=== PATIENT | female | born 1950 | race Caucasian/White ===

== ENCOUNTER 2017-09-13 17:48 | Inpatient (IN) | payer MEDICARE, OTHER ==
[2017-09-13] MEDS: HYDROmorphONE 1 MG/ML SYG IV (18:27)
[2017-09-13] MEDS: ONDANSETRON 4 MG INJ IV (18:27)
[2017-09-13 20:51] LABS: ADD MAN DIFF? NO
[2017-09-13 20:54] LABS: WHITE BLOOD COUNT 13.4 10^3/ul (4.8-10.8)
[2017-09-13 20:54] LABS: BASOPHILS % 0.1 % (0.0-2.0); HEMATOCRIT 37.7 % (37.0-47.0); HEMOGLOBIN 13.4 g/dl (12.0-16.0); LYMPHOCYTES # 1.3 10^3/ul (0.8-2.9); LYMPHOCYTES % 9.6 % (15.0-51.0); MEAN CORPUSCULAR HEMOGLOBIN 32.3 pg (29.0-33.0); MEAN CORPUSCULAR HGB CONC 35.5 g/dl (32.0-37.0); MEAN CORPUSCULAR VOLUME 90.8 fl (82.0-101.0); MEAN PLATELET VOLUME 10.2 fl (7.4-10.4); MONOCYTE # 0.5 10^3/ul (0.3-0.9); NEUTROPHIL # 11.5 10^3/ul (1.6-7.5); NEUTROPHILS % 86.1 % (39.0-77.0); PLATELET COUNT 270 10^3/UL (140-415); RED BLOOD COUNT 4.15 10^6/ul (4.20-5.40); RED CELL DISTRIBUTION WIDTH 11.9 % (11.5-14.5)
[2017-09-13 21:14] LABS: INR 0.93; PROTIME 12.6 Sec (11.9-14.9)
[2017-09-13 21:15] LABS: PARTIAL THROMBOPLASTIN TIME 26.7 Sec (25.0-35.0)
[2017-09-13 21:19] LABS: ALANINE AMINOTRANSFERASE 491 IU/L (13-69); ALBUMIN 4.3 g/dl (3.3-4.9); ALBUMIN/GLOBULIN RATIO 1.53; ALKALINE PHOSPHATASE 83 IU/L (42-121); ANION GAP 11 (8-16); ASPARTATE AMINO TRANSFERASE 584 IU/L (15-46); BILIRUBIN,INDIRECT 0.6 mg/dl (0-1.1); BLOOD UREA NITROGEN 12 mg/dl (7-20); CALCIUM 8.6 mg/dl (8.4-10.2); CARBON DIOXIDE 33 mmol/L (21-31); CHLORIDE 95 mmol/L (97-110); CREATININE 0.49 mg/dl (0.44-1.00); GLUCOSE 139 mg/dl (70-220); LIPASE 64 U/L (23-300); POTASSIUM 3.4 mmol/L (3.5-5.1); SODIUM 136 mmol/L (135-144); TOTAL PROTEIN 7.1 g/dl (6.1-8.1)
[2017-09-13] MEDS ORDERED: AMPICILLIN/SULB 3 GM/NS (PMX) 100 ML IVPB (22:30)
[2017-09-13] MEDS ORDERED: ONDANSETRON 4 MG INJ IV (22:30)
[2017-09-13] MEDS ORDERED: ZOLPIDEM 5 MG TAB PO (22:30)
[2017-09-13] MEDS: morphine 4 MG/ML VIAL IV (22:38)
[2017-09-13 22:56] LABS: TROPONIN-I < 0.012 ng/ml (0.00-0.12)
[2017-09-13] MEDS: AMPICILLIN/SULB 3 GM/NS (PMX) 100 ML IVPB (23:35)
[2017-09-14] MEDS ORDERED: ALBUTEROL/IPRATROPIUM (NEB) 3 ML AMP HHN (01:00)
[2017-09-14] MEDS ORDERED: NACL 0.9% 3 ML SYG IV (01:00)
[2017-09-14] MEDS ORDERED: ZOLPIDEM 5 MG TAB PO ×2 (01:00→11:30)
[2017-09-14] MEDS ORDERED: hydrALAzine 20 MG INJ IV (01:00)
[2017-09-14] MEDS ORDERED: ONDANSETRON 4 MG INJ IV (01:00)
[2017-09-14] MEDS: D5W-0.45 NACL + KCL 10 MEQ 1,000 ML IV ×2 (01:23→11:31)
[2017-09-14 04:47] LABS: ADD MAN DIFF? NO
[2017-09-14 04:50] LABS: BASOPHILS % 0.4 % (0.0-2.0); EOSINOPHILS % 0.2 % (0.0-7.0); HEMATOCRIT 36.8 % (37.0-47.0); HEMOGLOBIN 12.9 g/dl (12.0-16.0); LYMPHOCYTES # 1.5 10^3/ul (0.8-2.9); LYMPHOCYTES % 15.5 % (15.0-51.0); MEAN CORPUSCULAR HEMOGLOBIN 31.9 pg (29.0-33.0); MEAN CORPUSCULAR HGB CONC 35.1 g/dl (32.0-37.0); MEAN CORPUSCULAR VOLUME 91.1 fl (82.0-101.0); MEAN PLATELET VOLUME 10.1 fl (7.4-10.4); MONOCYTE # 0.7 10^3/ul (0.3-0.9); MONOCYTES % 7.2 % (0.0-11.0); NEUTROPHIL # 7.3 10^3/ul (1.6-7.5); NEUTROPHILS % 76.5 % (39.0-77.0); PLATELET COUNT 249 10^3/UL (140-415); RED BLOOD COUNT 4.04 10^6/ul (4.20-5.40); RED CELL DISTRIBUTION WIDTH 11.9 % (11.5-14.5)
[2017-09-14 04:50] LABS: WHITE BLOOD COUNT 9.5 10^3/ul (4.8-10.8)
[2017-09-14 05:19] LABS: ALANINE AMINOTRANSFERASE 471 IU/L (13-69); ALBUMIN 3.8 g/dl (3.3-4.9); ALBUMIN/GLOBULIN RATIO 1.35; ALKALINE PHOSPHATASE 87 IU/L (42-121); ANION GAP 10 (8-16); ASPARTATE AMINO TRANSFERASE 340 IU/L (15-46); BILIRUBIN,INDIRECT 0.8 mg/dl (0-1.1); BILIRUBIN,TOTAL 0.8 mg/dl (0.2-1.3); BLOOD UREA NITROGEN 10 mg/dl (7-20); CALCIUM 8.7 mg/dl (8.4-10.2); CARBON DIOXIDE 29 mmol/L (21-31); CHLORIDE 99 mmol/L (97-110); CREATININE 0.46 mg/dl (0.44-1.00); GLUCOSE 140 mg/dl (70-220); MAGNESIUM 1.9 mg/dl (1.7-2.5); PHOSPHORUS 2.9 mg/dl (2.5-4.9); POTASSIUM 3.2 mmol/L (3.5-5.1); SODIUM 135 mmol/L (135-144); TOTAL PROTEIN 6.6 g/dl (6.1-8.1)
[2017-09-14] MEDS: FAMOTIDINE 20 MG INJ IV ×2 (09:41→21:02)
[2017-09-14] MEDS: METOPROLOL (XL) 25 MG TAB PO (11:30)
[2017-09-14] MEDS: POTASSIUM CHLORIDE (SR) 20 MEQ TAB PO (11:31)
[2017-09-14] MEDS: ENALAPRIL 20 MG TAB PO ×2 (13:01→21:02)
[2017-09-14] MEDS: ACETAMINOPHEN 325 MG TAB PO (22:26)
[2017-09-15] MEDS: D5W-0.45 NACL + KCL 10 MEQ 1,000 ML IV ×3 (00:49→19:39)
[2017-09-15 05:21] LABS: ADD MAN DIFF? NO; HAAIG REFLEX REFLEX FILED
[2017-09-15 05:27] LABS: BASOPHIL # 0.1 10^3/ul (0.0-0.1); BASOPHILS % 0.8 % (0.0-2.0); EOSINOPHILS # 0.1 10^3/ul (0.0-0.5); HEMATOCRIT 36.9 % (37.0-47.0); HEMOGLOBIN 12.4 g/dl (12.0-16.0); LYMPHOCYTES # 1.6 10^3/ul (0.8-2.9); LYMPHOCYTES % 26.2 % (15.0-51.0); MEAN CORPUSCULAR HEMOGLOBIN 32.2 pg (29.0-33.0); MEAN CORPUSCULAR HGB CONC 33.6 g/dl (32.0-37.0); MEAN CORPUSCULAR VOLUME 95.8 fl (82.0-101.0); MEAN PLATELET VOLUME 10.7 fl (7.4-10.4); MONOCYTE # 0.7 10^3/ul (0.3-0.9); NEUTROPHIL # 3.6 10^3/ul (1.6-7.5); NEUTROPHILS % 59.8 % (39.0-77.0); PLATELET COUNT 215 10^3/UL (140-415); RED BLOOD COUNT 3.85 10^6/ul (4.20-5.40); RED CELL DISTRIBUTION WIDTH 12.1 % (11.5-14.5)
[2017-09-15 05:27] LABS: WHITE BLOOD COUNT 6.1 10^3/ul (4.8-10.8)
[2017-09-15 06:06] LABS: ANION GAP 10 (8-16); BLOOD UREA NITROGEN 7 mg/dl (7-20); CALCIUM 8.6 mg/dl (8.4-10.2); CARBON DIOXIDE 29 mmol/L (21-31); CHLORIDE 105 mmol/L (97-110); CREATININE 0.57 mg/dl (0.44-1.00); GLUCOSE 130 mg/dl (70-220); MAGNESIUM 2.1 mg/dl (1.7-2.5); PHOSPHORUS 2.7 mg/dl (2.5-4.9); POTASSIUM 3.7 mmol/L (3.5-5.1); SODIUM 140 mmol/L (135-144)
[2017-09-15 06:34] LABS: HEPATITIS B SURFACE ANTIGEN NEGATIVE (NEGATIVE)
[2017-09-15 06:52] LABS: HEPATITIS B CORE ANTIBODY REACTIVE (NEGATIVE); HEPATITIS C VIRAL ANTIBODY NEGATIVE (NEGATIVE)
[2017-09-15] MEDS ORDERED: CEFAZOLIN 1 GM INJ (07:00)
[2017-09-15] MEDS: FAMOTIDINE 20 MG INJ IV ×2 (09:00→21:10)
[2017-09-15] MEDS: BUPIVACAINE 0.25% (MPF) 30 ML INJ (09:02)
[2017-09-15] MEDS ORDERED: FAMOTIDINE 20 MG INJ (09:36)
[2017-09-15] MEDS ORDERED: ROCURONIUM 50 MG INJ (09:36)
[2017-09-15] MEDS ORDERED: ONDANSETRON 4 MG INJ (09:36)
[2017-09-15] MEDS ORDERED: LIDOCAINE 1% (MDV) 20 ML INJ (09:36)
[2017-09-15] MEDS ORDERED: MIDAZOLAM 1 MG/ML 2 ML INJ (09:36)
[2017-09-15] MEDS ORDERED: PROPOFOL 20 ML (09:36)
[2017-09-15] MEDS ORDERED: DEXAMETHASONE 4 MG/ML 1 ML INJ (09:36)
[2017-09-15] MEDS ORDERED: ONDANSETRON 4 MG INJ IV ×2 (10:00→10:30)
[2017-09-15] MEDS ORDERED: OXYCODONE/ACETAMINOPHEN (5/325) TAB PO ×2 (10:00)
[2017-09-15] MEDS ORDERED: morphine 2 MG INJ IV (10:00)
[2017-09-15] MEDS ORDERED: MEPERIDINE 25 MG INJ (10:05)
[2017-09-15] MEDS ORDERED: HYDROmorphONE (0.2 MG/ML) 10ML SYG IV ×2 (10:30)
[2017-09-15] MEDS ORDERED: hydrALAzine 20 MG INJ IV (10:30)
[2017-09-15] MEDS ORDERED: LABETALOL HCL 20MG INJ IV (10:30)
[2017-09-15] MEDS ORDERED: SUGAMMADEX SODIUM 200 MG/2 ML VIAL IV (10:35)
[2017-09-15] MEDS ORDERED: ROPIVACAINE 0.2% 20 ML VIAL (10:35)
[2017-09-15] MEDS: morphine 2 MG INJ IV (11:44)
[2017-09-15] MEDS: ENALAPRIL 20 MG TAB PO ×2 (11:45→21:07)
[2017-09-15] MEDS: HYDROCHLOROTHIAZIDE 25 MG TAB PO (11:45)
[2017-09-15] MEDS: METOPROLOL (XL) 25 MG TAB PO (11:45)
[2017-09-15] MEDS: CEFAZOLIN 1 GM/50 ML (PMX) 50 ML IVPB ×2 (14:54→21:08)
[2017-09-16] MEDS: D5W-0.45 NACL + KCL 10 MEQ 1,000 ML IV (03:00)
[2017-09-16 05:09] LABS: ADD MAN DIFF? NO
[2017-09-16 05:13] LABS: BASOPHILS % 0.4 % (0.0-2.0); EOSINOPHILS % 0.1 % (0.0-7.0); HEMATOCRIT 34.3 % (37.0-47.0); HEMOGLOBIN 11.9 g/dl (12.0-16.0); LYMPHOCYTES % 30.3 % (15.0-51.0); MEAN CORPUSCULAR HEMOGLOBIN 32.5 pg (29.0-33.0); MEAN CORPUSCULAR HGB CONC 34.7 g/dl (32.0-37.0); MEAN CORPUSCULAR VOLUME 93.7 fl (82.0-101.0); MEAN PLATELET VOLUME 10.6 fl (7.4-10.4); MONOCYTE # 0.6 10^3/ul (0.3-0.9); NEUTROPHILS % 59.8 % (39.0-77.0); PLATELET COUNT 222 10^3/UL (140-415); RED BLOOD COUNT 3.66 10^6/ul (4.20-5.40)
[2017-09-16 05:13] LABS: WHITE BLOOD COUNT 6.7 10^3/ul (4.8-10.8)
[2017-09-16 05:41] LABS: ALANINE AMINOTRANSFERASE 230 IU/L (13-69); ALBUMIN 3.8 g/dl (3.3-4.9); ALBUMIN/GLOBULIN RATIO 1.31; ALKALINE PHOSPHATASE 146 IU/L (42-121); ANION GAP 11 (8-16); ASPARTATE AMINO TRANSFERASE 69 IU/L (15-46); BILIRUBIN,INDIRECT 0.2 mg/dl (0-1.1); BILIRUBIN,TOTAL 0.2 mg/dl (0.2-1.3); BLOOD UREA NITROGEN 11 mg/dl (7-20); CALCIUM 9.3 mg/dl (8.4-10.2); CARBON DIOXIDE 31 mmol/L (21-31); CHLORIDE 101 mmol/L (97-110); CREATININE 0.61 mg/dl (0.44-1.00); GLUCOSE 135 mg/dl (70-220); POTASSIUM 3.8 mmol/L (3.5-5.1); SODIUM 139 mmol/L (135-144); TOTAL PROTEIN 6.7 g/dl (6.1-8.1)
[2017-09-16] MEDS: CEFAZOLIN 1 GM/50 ML (PMX) 50 ML IVPB ×2 (05:46→13:11)
[2017-09-16] MEDS: FAMOTIDINE 20 MG INJ IV (08:15)
[2017-09-16] MEDS: METOPROLOL (XL) 25 MG TAB PO (08:16)
[2017-09-16] MEDS: HYDROCHLOROTHIAZIDE 25 MG TAB PO (08:16)
[2017-09-16] MEDS: ENALAPRIL 20 MG TAB PO (08:16)
[2017-09-16 12:12] LABS: MITOCHONDRIAL TB NEGATIVE (NEGATIVE); SMOOTH MUSCLE AB SCREEN NEGATIVE (NEGATIVE)
[2017-09-16 14:21] LABS: ANA SCREEN NEGATIVE (NEGATIVE)
== END 2017-09-16 14:50 | disposition home or self-care (01) | DRG 419 ==
LOC: E/R 17:48 → MS1 22:13
PROC: 0FT44ZZ Resection of Gallbladder, Percutaneous Endoscopic Approach (ICD-10-PCS; principal; 2017-09-15 08:54)
DX: K80.00 Calculus of gallbladder with acute cholecystitis without obstruction (principal); E78.5 Hyperlipidemia, unspecified; I16.0 Hypertensive urgency; E87.6 Hypokalemia; F17.210 Nicotine dependence, cigarettes, uncomplicated
CPT/HCPCS: 71046; 74176; 74181; 76705; 80048; 80053; 82728; 83690; 83735; 84100; 84484; 85025; 85610; 85730; 86038; 86255; 86704; 86709; 86803; 87340; 88304; 93005; 96374; 96375; 99285-25